=== PATIENT | male | born 1985 | race Caucasian/White ===

== ENCOUNTER 2019-04-30 10:03 | Inpatient (IN) | payer SELFPAY ==
[~2019-04-30] VITALS: Ht 172.7 cm; Wt 115.7 kg
[2019-04-30 10:11] VITALS: BP_SYST 137
--- NOTE | 2019-04-30 10:18 | NUR ---
Patient to ER bed 5 to gown for evaluation. Side rails up. Report given to Amina REEVES.
--- NOTE | 2019-04-30 10:25 | NUR ---
ER at bedside examining patient.
[2019-04-30] MEDS ORDERED: NACL 0.9% 1,000 ML IV ONE (10:26)
[2019-04-30] MEDS ORDERED: ONDANSETRON HCL 4 MG/2 ML VIAL IVP ONE (10:30)
[2019-04-30] MEDS ORDERED: NACL 0.9% 2,000 ML IV ONE (10:30)
[2019-04-30 10:46] LABS: BILIRUBIN,URINE 3+ (NEGATIVE); BLOOD, URINE NEGATIVE (NEGATIVE); CLARITY/URINE CLEAR (CLEAR); COLOR,URINE BROWN (YELLOW); GLUCOSE,URINE TRACE (NEGATIVE); KETONES,URINE TRACE (NEGATIVE); LEUKOCYTE ESTERASE ,URINE TRACE (NEGATIVE); NITRITE, URINE POSITIVE (NEGATIVE); PROTEIN URINE 1+ (NEGATIVE)
[2019-04-30 10:51] LABS: BACTERIA,URINE MODERATE /HPF (None Seen)
[2019-04-30 10:52] LABS: OTHER CASTS, URINE EPITHELIAL CASTS 2+ /LPF (None Seen)
--- NOTE | 2019-04-30 11:00 | NUR ---
patient in bed, fiancee at bedside, no s/s of acute distress noted. will continue to monitor.
[2019-04-30 11:29] LABS: BASOPHILS % (AUTO) 0.3 % (0.0-2.0); EOSINOPHILS # (AUTO) 0.1 K/uL (0.0-0.4); EOSINOPHILS % (AUTO) 1.3 % (0.0-4.0); HEMATOCRIT 49.1 % (36-54); HEMOGLOBIN 17.2 g/dL (14.0-18.0); LYMPHOCYTES # (AUTO) 1.2 K/uL (1.0-5.5); LYMPHOCYTES % (AUTO) 12.3 % (20.5-51.5); MEAN CORPUSCULAR HEMOGLOBIN 31 pg (27-31); MEAN CORPUSCULAR HGB CONC 35 % (32-36); MEAN CORPUSCULAR VOLUME 87 fL (79.0-98.0); MONOCYTES # (AUTO) 0.7 K/uL (0.0-1.0); MONOCYTES % (AUTO) 7.6 % (1.7-9.3); NEUTROPHILS # (AUTO) 7.7 K/uL (1.8-7.7); NEUTROPHILS % (AUTO) 78.5 % (40.0-70.0); PLATELET COUNT (AUTO) 297 K/uL (130-430); RED BLOOD CELL COUNT(AUTO) 5.63 MIL/uL (4.2-6.2); RED CELL DISTRIBUTION WIDTH 13.3 % (9.0-15.0); WHITE BLOOD COUNT (AUTO) 9.8 K/uL (4.8-10.8)
[2019-04-30 11:36] LABS: CALCIUM 8.1 mg/dL (8.4-11.0); CREATININE 0.64 mg/dL (0.55-1.30); POTASSIUM 3.5 mmol/L (3.5-5.1)
[2019-04-30 12:10] LABS: PROTHROMBIN TIME 53.1 SECS (9.5-12.5)
[2019-04-30 12:11] LABS: INR 5.4 (0.80-1.20)
[2019-04-30 12:26] LABS: ALBUMIN 3.2 g/dL (3.4-4.8); TOTAL BILIRUBIN 13.8 mg/dL (0.0-1.0)
--- NOTE | 2019-04-30 13:45 | NUR ---
CONSULTATION PAGED/CALLED Reason for Consultation: LIVER FAILURE Person Who was Notified: MEREDITH Consulting Physician: DR. TOMAS [employer] Scout Specialty: CORK INSULATOR Ordering Physician: DR. WERNER
--- NOTE | 2019-04-30 14:30 | NUR ---
Patient will be admitted to care of Dr. Barragan. Admitted to medical/surgical unit. Will go to room 118B. Belongings list completed. Summary report printed. Report will be given at bedside.
--- NOTE | 2019-04-30 14:35 | NUR ---
patient taken to [facility] by EMT Claudy. Report given to LALA Love all questions answered. Patient transferred in stable condition.
--- NOTE | 2019-04-30 14:41 | NUR ---
ADMISSION Receive patient from ER via [place]. Patient is ambulatory. No signs or respiratory distress. NS 500 ml infusing per gravity. IV in the left AC with 22G. Oriented to to room and staffing. Call light within reach.
[2019-04-30 15:11] VITALS: BP_SYST 122
[2019-04-30] MEDS ORDERED: PHYTONADIONE 10 MG/ML AMP SUBCUT ONE (15:30)
[2019-04-30] MEDS ORDERED: PANTOPRAZOLE SODIUM 40 MG/VIAL (PROTONIX) IVP ONE (17:15)
--- NOTE | 2019-04-30 17:20 | NUR ---
GI consult: Spoke with Dr. Clancy, orders received and carried out.
[2019-04-30] MEDS ORDERED: NACL 0.9% 1,000 ML IV SCH (17:41)
[2019-04-30] MEDS ORDERED: LORazepam 2 MG/ML VIAL IVP PRN (17:45)
[2019-04-30] MEDS ORDERED: ONDANSETRON HCL 4 MG/2 ML VIAL IVP PRN (17:45)
[2019-04-30] MEDS ORDERED: MORPHINE 2 MG/ML INJ. SYRINGE IVP PRN (17:45)
[2019-04-30] MEDS ORDERED: MORPHINE 4 MG/ML INJ. SYRINGE IVP PRN (17:45)
[2019-04-30] MEDS: LR 1,000 ML IV SCH ×2 (17:53→21:50)
--- NOTE | 2019-04-30 19:07 | NUR ---
End of shift: Needs attended. Seen by Dr. Barragan. Remain NPO for ultrasound of the abdomen to be done at 2200. Patient is aware.
--- NOTE | 2019-04-30 19:53 | NUR ---
Initial note: Received report from tin RN. Patient is awake, no distress noted. Alert and oriented x4. Tolerating room air. LR infusing at 250 ML/HR to left AC IV site, no infiltration noted. Call light is with patient. Safety and fall precautions in place. Will continue with plan of care.
[2019-04-30 20:00] VITALS: BP_SYST 130
--- NOTE | 2019-04-30 21:05 | NUR ---
Abdominal ultrasound delayed: Received a call from engineering technical writer, notified that abdominal ultrasound won't be done until 08:00 tomorrow morning. Patient's clear liquid diet will be resumed, and is to be NPO after midnight. Patient was notified and was provided clear liquid diet snacks. Patient verbalized understanding of NPO status after midnight.
--- NOTE | 2019-04-30 21:26 | NUR ---
Dr. Constance Barragan: Dr. Constance Barragan was paged, spoke with him at this time to clarify IV fluid orders. MD stated to proceed with Dr. Clancy's order of LR with infusion rate of 250 ML/HR. MD was made aware regarding patient's request for sleep medication. Order received for Trazodone. Orders verified by read-back, RN to input.
[2019-04-30] MEDS ORDERED: traZODone HCL 50 MG TABLET (DESYREL) PO PRN (21:45)
--- NOTE | 2019-05-01 | NUR ---
NPO: Patient is now NPO for abdominal ultrasound in the morning. Patient was educated regarding NPO status, verbalized understanding. Will continue monitoring.
[2019-05-01 00:44] VITALS: BP_SYST 108
[2019-05-01] MEDS: LR 1,000 ML IV SCH ×6 (01:45→20:12)
--- NOTE | 2019-05-01 03:10 | NUR ---
Rounds: Patient is asleep, no distress noted. Even and unlabored breathing on room air. IV fluids infusing as ordered. No infiltration noted. Call light with patient. Will continue monitoring.
--- NOTE | 2019-05-01 06:02 | NUR ---
Closing note: Patient is asleep in bed, no acute distress. Even and unlabored breathing on room air. IV fluids infusing well to left AC IV site, no infiltration. Patient has been kept NPO for abdominal ultrasound scheduled for this AM. All needs met. Safety and fall precautions maintained. Hourly rounding performed throughout shift. Will endorse care to dayshift RN.
--- NOTE | 2019-05-01 07:32 | NUR ---
open note Report was endorsed by night nurse. Patient is awake and alert, sitting in chair at bed side. Patient states he is hungry, patient is NPO since 05/01/19 @0000 for abdominal U/S. Patient educated mission commander light for assistance. Call light is with patient. Patient is aware that u/s should be done around 0800. Patient has no complaints at this time. Patient shows no signs of any distress, breathing is equal and non labored. will continue to
[2019-05-01 07:34] LABS: BASOPHILS # (AUTO) 0.1 K/uL (0.0-0.2); BASOPHILS % (AUTO) 0.8 % (0.0-2.0); EOSINOPHILS # (AUTO) 0.2 K/uL (0.0-0.4); EOSINOPHILS % (AUTO) 1.9 % (0.0-4.0); HEMATOCRIT 48.3 % (36-54); HEMOGLOBIN 16.9 g/dL (14.0-18.0); LYMPHOCYTES # (AUTO) 1.4 K/uL (1.0-5.5); LYMPHOCYTES % (AUTO) 16.7 % (20.5-51.5); MEAN CORPUSCULAR HEMOGLOBIN 31 pg (27-31); MEAN CORPUSCULAR HGB CONC 35 % (32-36); MEAN CORPUSCULAR VOLUME 88 fL (79.0-98.0); MONOCYTES # (AUTO) 0.7 K/uL (0.0-1.0); MONOCYTES % (AUTO) 8.3 % (1.7-9.3); NEUTROPHILS # (AUTO) 6.1 K/uL (1.8-7.7); NEUTROPHILS % (AUTO) 72.3 % (40.0-70.0); PLATELET COUNT (AUTO) 298 K/uL (130-430); RED BLOOD CELL COUNT(AUTO) 5.51 MIL/uL (4.2-6.2); RED CELL DISTRIBUTION WIDTH 13.2 % (9.0-15.0); WHITE BLOOD COUNT (AUTO) 8.5 K/uL (4.8-10.8)
[2019-05-01 07:48] VITALS: BP_SYST 109
[2019-05-01 07:56] LABS: PROTHROMBIN TIME 40.5 SECS (9.5-12.5)
[2019-05-01 07:57] LABS: INR 4.1 (0.80-1.20)
[2019-05-01] MEDS: PANTOPRAZOLE SODIUM 40 MG/VIAL (PROTONIX) IVP SCH (08:07)
--- NOTE | 2019-05-01 08:15 | NUR ---
PAGED PAGED ASHELY RACHEL AT [phone] SPOKE WITH EXCHANGE.
[2019-05-01] MEDS ORDERED: PHYTONADIONE 10 MG/ML AMP IM ONE (08:30)
[2019-05-01 08:41] LABS: CALCIUM 8.3 mg/dL (8.4-11.0); CREATININE 0.76 mg/dL (0.55-1.30); POTASSIUM 4.2 mmol/L (3.5-5.1); TOTAL BILIRUBIN 14.2 mg/dL (0.0-1.0)
[2019-05-01 08:42] LABS: ALBUMIN 2.6 g/dL (3.4-4.8)
[2019-05-01 09:12] LABS: ERYTHROCYTE SEDIMENTATION RATE 2 MM/HR (0-15)
[2019-05-01 09:56] LABS: C-REACTIVE PROTEIN QUANT 2.6 mg/dL (0-0.5)
--- NOTE | 2019-05-01 10:20 | NUR ---
DR. THOM IRBY at bedside. Patients scheduled medication given as ordered. Patient is awake and alert sitting up in bed. no complaints of any pain at this time.Patient educated transportation clerk light for assistance, call light is with patient . Patient is close to nurses station. no other needs at this time. will continue to monitor. Addendum: 05/01/19 at 1037 by Mahsa Miller RN MADE AWARE OF ELEVATED LIPASE
--- NOTE | 2019-05-01 12:00 | NUR ---
rn rounding Patient is awake and alert, no signs of any distress, breathing is equal and non labored. no signs of any confusion. Patient has all safety precautions in place. Educated reclamation supervisor light for assistance.Call light is with patient. Patient has no other needs at this time. will continue to monitor.
[2019-05-01 12:35] VITALS: BP_SYST 115
[2019-05-01] MEDS ORDERED: SODIUM POLYSTYRENE SULFONATE 15 GM/60 ML UDBTL PO ONE (13:30)
[2019-05-01] MEDS: LEVOFLOXACIN 500 MG/D5W 100 ML IV SCH (13:45)
--- NOTE | 2019-05-01 13:52 | NUR ---
Medication Patient is awake and alert, sitting up in bed, family is at bed side. Patient shows no signs of confusion. Patient shows no signs of any distress, breathing is equal and non labored. Patient has no complaints at this time. Patient provided urine sample as requested. Patient has call light is with patient, educated to use for assistance. Will continue to monitor no other needs at this time.
--- NOTE | 2019-05-01 16:39 | NUR ---
RN ROUNDING Patient is awake and alert sitting up in bed no signs of any distress, breathing is equal and non labored. Patient shows no signs of confusion. Patient educated front office representative light for assistance. Call light is with patient. Patient has no other needs at this time. will continue to monitor.
[2019-05-01 16:47] LABS: BARBITURATE, URINE NEGATIVE (NEG <=200); BENZODIAZEPINE, URINE NEGATIVE (NEG <=150); CANNABINOID, URINE NEGATIVE (NEG <=50); COCAINE, URINE NEGATIVE (NEG <=150); METHAMPHETAMINES SCREEN,URINE NEGATIVE (NEG <=500); OPIATE, URINE NEGATIVE (NEG <=100); PHENCYCLIDINE SCREEN,URINE NEGATIVE (NEG <=25); UR TRICYCLIC ANTIDEPRESSANTS NEGATIVE (NEG <=300); URINE AMPHETAMINE NEGATIVE (NEG <=500); URINE METHADONE NEGATIVE (NEG <=200); URINE OXYCODONE SCREEN NEGATIVE (NEG <=100); URINE PROPOXYPHENE SCREEN NEGATIVE (NEG <=300)
[2019-05-01 16:50] VITALS: BP_SYST 131
--- NOTE | 2019-05-01 18:34 | NUR ---
RN CLOSING NOTE Patient is awake and alert sitting in bed no signs of any distress, breathing is equal and non labored. Patient shows no signs of confusion. Patient educated to use call light for assistance. Call light is with patient. Patient has no complaints at this time. All safety precautions in place. Patient is stable
--- NOTE | 2019-05-01 19:39 | NUR ---
OPENING NOTES Received patient AO4, resting in bed. No sign of distress, non labored breathing. IVF infusing at 250 ml/hr. Instructed on use of call light. Bed is locked in lowest position.
[2019-05-01 20:00] VITALS: BP_SYST 128
--- NOTE | 2019-05-01 20:28 | NUR ---
IV alarm ringing Patient is resting and does not want to be disturbed. VSS stable and non labored breathing. Hung new IVF fluids and infusing at 250 m//hr as ordered. I informed him he will be NPO at midnight and he verbalized understanding. I let him know he is having the MRICP in AM and I have the question form to be completed and he replied he will take care of it in the morning. He reports moderate pain, though he refused morphine stating he dose not want it, he will rest instead. Lights are dim. Call light w/in reach.
--- NOTE | 2019-05-01 22:00 | NUR ---
Rounds Patient is resting, eyes closed, non labored breathing. IVF infusing well. Call light w/in reach.
--- NOTE | 2019-05-01 23:30 | NUR ---
IV alarm Patient bent elbow and IV alarmed. He was reminded that water will be removed at midnight. He request a fresh cup a ice water and it was provided. Will monitor.
--- NOTE | 2019-05-02 00:05 | NUR ---
NPO / IVF Patient was awake, IV was alarming. Placed a roll of gauze to elbow to prevent from bending. Drink items were removed from table. NPO cone placed on bedside table and updated board. VSS, non-labored breathing. Replaced and hung new IV fluids and infusing at 250 ml/hr as ordered. Patient has no further needs. Will monitor.
[2019-05-02] MEDS: LR 1,000 ML IV SCH ×6 (00:14→21:08)
[2019-05-02 00:15] VITALS: BP_SYST 107
--- NOTE | 2019-05-02 02:30 | NUR ---
Rounds Patient is sleeping, symmetrical rise and fall of chest noted, non-labored breathing. IVF infusing well. Call light w/in reach.
--- NOTE | 2019-05-02 05:10 | NUR ---
IVF IVF fluids empty, replaced with new bag of LR as ordered. Patient resting is side posture, non labored breathing. Safety measures in place and call light w/in reach.
--- NOTE | 2019-05-02 07:00 | NUR ---
closing notes Patient completed MRI questions form. He voiced he is ready to leave today after MRI results, he said he's been here too long and would rest better at home. Resting in bed, non-labored breathing on room air. IVF infusing well. Will endorse care to oncoming shift.
[2019-05-02 07:14] LABS: INR 2.8 (0.80-1.20); PROTHROMBIN TIME 27.5 SECS (9.5-12.5)
[2019-05-02 07:25] LABS: BASOPHILS % (AUTO) 0.3 % (0.0-2.0); EOSINOPHILS # (AUTO) 0.1 K/uL (0.0-0.4); EOSINOPHILS % (AUTO) 1.8 % (0.0-4.0); HEMATOCRIT 47.6 % (36-54); HEMOGLOBIN 16.4 g/dL (14.0-18.0); LYMPHOCYTES # (AUTO) 1.3 K/uL (1.0-5.5); LYMPHOCYTES % (AUTO) 18.7 % (20.5-51.5); MEAN CORPUSCULAR HEMOGLOBIN 31 pg (27-31); MEAN CORPUSCULAR HGB CONC 34 % (32-36); MEAN CORPUSCULAR VOLUME 89 fL (79.0-98.0); MONOCYTES # (AUTO) 0.8 K/uL (0.0-1.0); MONOCYTES % (AUTO) 10.4 % (1.7-9.3); NEUTROPHILS % (AUTO) 68.8 % (40.0-70.0); PLATELET COUNT (AUTO) 260 K/uL (130-430); RED BLOOD CELL COUNT(AUTO) 5.35 MIL/uL (4.2-6.2); RED CELL DISTRIBUTION WIDTH 13.9 % (9.0-15.0); WHITE BLOOD COUNT (AUTO) 7.2 K/uL (4.8-10.8)
[2019-05-02 07:38] LABS: ALBUMIN 2.3 g/dL (3.4-4.8); CALCIUM 7.9 mg/dL (8.4-11.0); CREATININE 0.72 mg/dL (0.55-1.30); POTASSIUM 4.1 mmol/L (3.5-5.1); TOTAL BILIRUBIN 13.6 mg/dL (0.0-1.0)
--- NOTE | 2019-05-02 07:40 | NUR ---
OPENING NOTES: RECEIVED PATIENT FROM RESIDENTIAL DIRECT SUPPORT PROFESSIONAL NURSE. PATIENT IS AWAKE AND ALERT x4. PATIENT DENIES ANY PAIN AT THE MOMENT. NO SIGNS OF DISTRESS OR SHORTNESS OF BREATH NOTED. PATIENT IS TOLERATING OXYGEN ON ROOM AIR. IV SITE IS PATENT WITH NO SIGNS OF INFILTRATION AND INFUSING FLUIDS ORDERED. PATIENT IN STABLE CONDITION. SAFETY AND FALL PRECAUTIONS ARE IN PLACE. BED LOCKED IN LOWEST POSITION WITH CALL LIGHT IN REACH. WILL CONTINUE TO MONITOR PATIENT FOR ANY CHANGES.
[2019-05-02 08:39] VITALS: BP_SYST 123
--- NOTE | 2019-05-02 09:30 | NUR ---
MRI PT LEFT UNIT FOR MRI, PT IN STABLE CONDITION, NO S/S OF DISTRESS OR SOB NOTED, PT HAS NO C/O PAIN AT THIS TIME.
[2019-05-02] MEDS: PANTOPRAZOLE SODIUM 40 MG/VIAL (PROTONIX) IVP SCH (10:42)
--- NOTE | 2019-05-02 10:42 | NUR ---
RN ROUNDS: PATIENT JUST CAME BACK FROM HIS MRI. PATIENT DENIES ANY PAIN AT THE MOMENT. PATIENT AWAKE AND ALERT x4. NO SIGNS OF DISTRESS OR SHORTNESS OF BREATH NOTED. PATIENT IN STABLE CONDITION. WILL CONTINUE TO MONITOR PATIENT FOR ANY CHANGES.
[2019-05-02 11:06] LABS: HEPATITIS C VIRUS AB <0.1 s/co ratio (0.0-0.9)
--- NOTE | 2019-05-02 11:28 | NUR ---
CALL DR JUAN DE LOS SANTOS TO LET HIM KNOW OF RESULTS OF MRI MRCP AND TO SEE IF PT CAN EAT, AWAITING CALL BACK. Addendum: 05/02/19 at 1224 by Nalini Chiu RN CALLED BACK AND GAVE NEW ORDERS FOR DIET Addendum: 05/02/19 at 1227 by Nalini Chiu RN MADE HIM AWARE OF RESULTS OF MRI MRCP
--- NOTE | 2019-05-02 11:28 | NUR ---
Paged dr gilbert for orders. spoke with sergio
--- NOTE | 2019-05-02 11:44 | NUR ---
Associate Professor Of Sociology: met with pt., [place] STAFF MINE WARFARE OFFICER met with pt. who was in bed with his parents at bedside. Parents speak Croatian. Pt. stated he really wants to know what is happening to him and his health. He was irritated with his Rn who delivered the msg. that he could not have any water. Pt. was mad stating he has had nothing to drink for two days now since he arrived. Rn. explained to him the Dr. were waiting for the test results. STAFF MINE WARFARE OFFICER introduced self and asked if it was ok to interview pt. who confirmed it was a good time. Pt. was talkative and easily participated in this interview. Pt. stated he resides in [place] and his parents reside in [place]. He is down here because he just arrived back from [place]. He was there to bring back his fiance. He stated he is suppose to be getting but he fell ill. Re. his self pay status, pt. stated Marco came last night and was filling out some paperwork on his behalf, re. [employer]. Pt stated Niki said he makes too much. Pt. wanted me to tell Niki he is currently unemployed. 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 The [employer] did not give him a leave of absence to go to [place]. He is currently employed by just the [employer] working 28 hrs. at $15 per. hr. STAFF MINE WARFARE OFFICER will share info with Marco via e-mail. STAFF MINE WARFARE OFFICER will remain available as needed. STAFF MINE WARFARE OFFICER gave pt. the durable power of attny packet to fill out.
--- NOTE | 2019-05-02 12:00 | NUR ---
POC DISCUSSED WITH PT CURRENT POC AND THAT MD WILL COME IN AND DISCUSS RESULTS OF MRI MRCP. PT VERBALIZED UNDERSTANDING.
--- NOTE | 2019-05-02 12:15 | NUR ---
RN ROUNDS: PATIENT IS AWAKE AND ALERT x4. NO SIGNS OF DISTRESS OR SHORTNESS OF BREATH NOTED. PATIENT DENIES ANY PAIN. PATIENT IN STABLE CONDITION. WILL CONTINUE TO MONITOR PATIENT FOR ANY CHANGES.
--- NOTE | 2019-05-02 12:16 | NUR ---
SECOND PAGED FOR DR MARTINEZ
[2019-05-02 12:48] VITALS: BP_SYST 126
[2019-05-02 13:14] LABS: HEPATITIS A AB, IgM Negative (Negative); HEPATITIS B CORE AB, IgM Negative (Negative); HEPATITIS B SURFACE AG Negative (Negative)
[2019-05-02] MEDS: LEVOFLOXACIN 500 MG/D5W 100 ML IV SCH (13:20)
--- NOTE | 2019-05-02 14:20 | NUR ---
RN ROUNDS: PATIENT IS AWAKE AND ALERT x4. PATIENT STATES HE IS JUST WAITING FOR THE DOCTOR TO COME. PATIENT DENIES ANY PAIN. NO SIGNS OF DISTRESS OR SHORTNESS OF BREATH. IV SITE STILL PATENT WITH NO SIGNS OF INFILTRATION. PATIENT IN STABLE CONDITION. WILL CONTINUE TO MONITOR PATIENT FOR ANY CHANGES.
--- NOTE | 2019-05-02 15:54 | NUR ---
Dietitian Recommendations * Recommend continuing full liquid diet (ONS Ensure Enlive TID comes standard w/ full liquid diets; provides 1050 kcal/day, 60 gm protein/day) * Consider advance diet if/when medically appropriate LP, RD Please refer to Nutrition Assessment for details. Addendum: 05/02/19 at [address] Amended: Links added.
--- NOTE | 2019-05-02 16:10 | NUR ---
RN ROUNDS: PATIENT IS AWAKE AND ALERT x4. PATIENT DENIES ANY PAIN AT THE MOMENT. NO SIGNS OF DISTRESS OR SHORTNESS OF BREATH NOTED. PATIENT IN STABLE CONDITION. WILL CONTINUE TO MONITOR PATIENT FOR ANY CHANGES.
[2019-05-02 16:40] VITALS: BP_SYST 135
--- NOTE | 2019-05-02 18:41 | NUR ---
CLOSING NOTES: PATIENT IS AWAKE AND ALERT x4 SITTING UP IN BED WATCHING TELEVISION. PATIENT DENIES ANY PAIN AT THE MOMENT. NO SIGNS OF DISTRESS OR SHORTNESS OF BREATH NOTED. PATIENT IS TOLERATING OXYGEN ON ROOM AIR. IV SITE IS PATENT WITH NO SIGNS OF INFILTRATION AND INFUSING FLUIDS ORDERED. PATIENT IN STABLE CONDITION. SAFETY AND FALL PRECAUTIONS ARE IN PLACE. BED LOCKED IN LOWEST POSITION WITH CALL LIGHT IN REACH. WILL ENDORSE PATIENT CARE TO ONCOMING INSURANCE JOB TITLES NURSE.
--- NOTE | 2019-05-02 19:13 | NUR ---
OPENING NOTES Pt and endorsement received from day shift nurse. Pt is AAOx4, sitting on a chair. Pt on IVF with LR at 250ml/hr and infusing well on left AC G22. No complains of pain or discomfort at this time. No signs of acute distress or SOB noted. Encouraged to use call light when needed. Call light with pt. Will continue to monitor.
[2019-05-02 21:11] VITALS: BP_SYST 138
--- NOTE | 2019-05-02 23:15 | NUR ---
IV INSERTION Pt's IV was infiltrated, new IV inserted on right hand G22. With good blood return and flushable with saline. Reconnected IVF and is infusing well. Will continue to monitor.
[2019-05-02 23:17] VITALS: BP_SYST 140
[2019-05-03] MEDS: LR 1,000 ML IV SCH ×2 (01:15→03:45)
--- NOTE | 2019-05-03 01:29 | NUR ---
ROUNDS Pt is AAOx4, sitting on a chair while watching tv. IVF infusing well. Pt complained of abdominal pain but refuses to take any pain medication. No signs of acute distress noted. Will continue to monitor.
[2019-05-03 03:43] VITALS: BP_SYST 119
--- NOTE | 2019-05-03 03:46 | NUR ---
PAIN MED Pt complained of abdominal pain with a scale of 6/10. Vital signs taken and recorded. Morphine 2mg IVP given as ordered. Educated on safety and side effects like dizziness, pt verbalized understanding. No signs of acute distress noted. Safety precautions in place and call light with pt. Will continue to monitor.
--- NOTE | 2019-05-03 06:25 | NUR ---
CLOSING NOTES Pt is resting in bed with both eyes closed, with visible chest rise and fall with non-labored breathing noted. No complains of pain or discomfort at this time. No signs of acute distress or SOB noted. IVF infusing well. All needs attended throughout the shift. Safety precautions maintained with 2 side rails up, wheels locked and bed in lowest position. Call light with pt. Will endorse to day shift nurse.
--- NOTE | 2019-05-03 07:25 | NUR ---
AM ROUNDS: PATIENT AWAKE DURING ROUNDS. RECEIVED REPORT FROM NIGHT NURSE POP. ABDOMINAL PAIN AT 1/10 LEVEL. NO NEEDS THIS TIME. NO ACUTE DISTRESS.
[2019-05-03 07:48] LABS: BASOPHILS % (AUTO) 0.3 % (0.0-2.0); EOSINOPHILS # (AUTO) 0.1 K/uL (0.0-0.4); EOSINOPHILS % (AUTO) 1.5 % (0.0-4.0); HEMOGLOBIN 16.1 g/dL (14.0-18.0); LYMPHOCYTES # (AUTO) 1.4 K/uL (1.0-5.5); MEAN CORPUSCULAR HEMOGLOBIN 31 pg (27-31); MEAN CORPUSCULAR HGB CONC 35 % (32-36); MEAN CORPUSCULAR VOLUME 89 fL (79.0-98.0); MONOCYTES # (AUTO) 0.9 K/uL (0.0-1.0); MONOCYTES % (AUTO) 11.8 % (1.7-9.3); NEUTROPHILS # (AUTO) 5.2 K/uL (1.8-7.7); NEUTROPHILS % (AUTO) 68.4 % (40.0-70.0); PLATELET COUNT (AUTO) 218 K/uL (130-430); RED BLOOD CELL COUNT(AUTO) 5.17 MIL/uL (4.2-6.2); RED CELL DISTRIBUTION WIDTH 13.8 % (9.0-15.0); WHITE BLOOD COUNT (AUTO) 7.6 K/uL (4.8-10.8)
[2019-05-03 07:52] LABS: INR 2.5 (0.80-1.20)
[2019-05-03 08:10] LABS: ALBUMIN 2.2 g/dL (3.4-4.8); CALCIUM 7.6 mg/dL (8.4-11.0); CREATININE 0.75 mg/dL (0.55-1.30); TOTAL BILIRUBIN 12.3 mg/dL (0.0-1.0)
--- NOTE | 2019-05-03 09:30 | NUR ---
RN ROUNDS: RESTING. NO COMPLAINED MADE.
[2019-05-03] MEDS: PANTOPRAZOLE SODIUM 40 MG/VIAL (PROTONIX) IVP SCH (09:43)
[2019-05-03 09:52] VITALS: BP_SYST 136
[2019-05-03 12:32] VITALS: BP_SYST 124
[2019-05-03] MEDS: LEVOFLOXACIN 500 MG/D5W 100 ML IV SCH (13:08)
--- NOTE | 2019-05-03 13:18 | NUR ---
RN ROUNDS: IV LEVAQUIN GIVEN. NO PROBLEM.
--- NOTE | 2019-05-03 14:46 | NUR ---
RN ROUNDS: PATIENT ON THE BED.STABLE. PATIENT'S MOTHER AT THE BEDSIDE.
--- NOTE | 2019-05-03 16:00 | NUR ---
GI CLEARED: SPOKE WITH DR MARTINEZ AND NIRANJAN TO DISCHARGE PATIENT HOME AND F/U WITH HIM NEXT WEEK OR NEEDED.
[2019-05-03 16:10] VITALS: BP_SYST 124
[2019-05-03 16:51] VITALS: BP_SYST 124
[2019-05-04 13:07] LABS: ANTI NUCLEAR AB WITH REFLEX Negative (Negative)
[2019-05-04 13:42] LABS: FERRITIN 15573 ng/mL (30-400)
== END 2019-05-03 18:16 | disposition home or self-care (01) | DRG 441 ==
LOC: SED 10:03 → SMU 13:14
PROVIDERS: ADMIT Preventive Medicine Preventive Medicine/Occupational Environmental Medicine; ATTEND Preventive Medicine Preventive Medicine/Occupational Environmental Medicine
DX: K72.00 Acute and subacute hepatic failure without coma (principal); E43 Unspecified severe protein-calorie malnutrition; K85.90 Acute pancreatitis without necrosis or infection, unspecified; B15.9 Hepatitis A without hepatic coma; D68.4 Acquired coagulation factor deficiency; E87.1 Hypo-osmolality and hyponatremia; N39.0 Urinary tract infection, site not specified; E83.51 Hypocalcemia; E83.52 Hypercalcemia; F19.10 Other psychoactive substance abuse, uncomplicated; I10 Essential (primary) hypertension; J45.909 Unspecified asthma, uncomplicated; K52.9 Noninfective gastroenteritis and colitis, unspecified; R74.0 Nonspecific elevation of levels of transaminase and lactic acid dehydrogenase [LDH]; E88.09 Other disorders of plasma-protein metabolism, not elsewhere classified; Z79.899 Other long term (current) drug therapy; Z68.38 Body mass index [BMI] 38.0-38.9, adult; Z80.3 Family history of malignant neoplasm of breast
CPT/HCPCS: 36415; 74181; 76700-TC; 80053; 80307; 81000-TC; 82140-TC; 82150-TC; 82728; 82787; 83516; 83690-TC; 85025; 85610-TC; 85651-TC; 85730-TC; 86038; 86140; 86705; 86709; 86803; 87040-TC; 87086; 87340; 96361; 96365; 96375; 99285; C9113; G0480; J1956; J2270; J2405; J3430; J7120

== ENCOUNTER 2020-02-19 09:53 | Emergency (ER) | payer SELFPAY ==
[~2020-02-19] VITALS: Ht 170.2 cm; Wt 120.2 kg
[2020-02-19] MEDS ORDERED: ONDANSETRON 4 MG ODT TAB PO ONE (10:15)
[2020-02-19] MEDS ORDERED: IBUPROFEN 800 MG TABLET PO ONE (10:15)
[2020-02-19 10:56] VITALS: BP_SYST 146
[2020-02-19 11:45] VITALS: BP_SYST 146
== END 2020-02-19 11:45 | disposition home or self-care (01) ==
LOC: SED 09:53
DX: U07.1 COVID-19 (principal); R51 Headache; R11.2 Nausea with vomiting, unspecified; J45.909 Unspecified asthma, uncomplicated
CPT/HCPCS: 99283; C9803; Q0162; U0003